=== PATIENT | female | born 1985 | race Caucasian/White ===

== ENCOUNTER 2018-04-02 14:22 | Outpatient (CLI) | payer OTHER ==
[~2018-04-02 14:22] MED LIST: CEPHALEXIN500 MG; FOLIC ACID1 MG PO; PRENATAL TABLE1 EAC1 PO; [UNRECOGNIZED DRUG - OTHER]
== END 2018-04-03 19:17 | disposition home or self-care (01) ==
LOC: OBS/DEL 14:22
DX: O47.03 False labor before 37 completed weeks of gestation, third trimester (principal); Z34.83 Encounter for supervision of other normal pregnancy, third trimester

== ENCOUNTER 2018-04-25 14:00 | Inpatient (IN) | payer OTHER ==
[~2018-04-25] VITALS: Ht 162.6 cm; Wt 78.0 kg
== END 2018-05-05 14:09 | DRG 807 ==
LOC: LDR 05-03 16:12 → OB/GYN 05-03 23:51
PROVIDERS: ADMIT Obstetrics & Gynecology
PROC: 10E0XZZ Delivery of Products of Conception, External Approach (ICD-10-PCS; principal; 2018-05-03)
PROC: 0KQM0ZZ Repair Perineum Muscle, Open Approach (ICD-10-PCS; 2018-05-03)
PROC: 0UQMXZZ Repair Vulva, External Approach (ICD-10-PCS; 2018-05-03)
PROC: 3E033VJ Introduction of Other Hormone into Peripheral Vein, Percutaneous Approach (ICD-10-PCS; 2018-05-03)
PROC: 4A1HXCZ Monitoring of Products of Conception, Cardiac Rate, External Approach (ICD-10-PCS; 2018-05-03)
DX: O70.1 Second degree perineal laceration during delivery (principal); Z37.0 Single live birth; O71.82 Other specified trauma to perineum and vulva; Z3A.38 38 weeks gestation of pregnancy